=== PATIENT | female | born 1940 | race Caucasian/White ===

== ENCOUNTER 2017-06-06 17:44 | Inpatient (IN) | payer MEDICARE, MEDICAID ==
[~2017-06-06] VITALS: Ht 154.9 cm; Wt 60.0 kg
[2017-06-06 19:02] LABS: BASOPHIL % 0.4 % (0-2); PLATELET COUNT 242 x10^3mcL (130-400)
[2017-06-06 19:08] LABS: RED CELL DISTRIBUTION WIDTH 14.6 % (11.5-14.5)
[2017-06-06 19:25] LABS: CHLORIDE SERUM 105 mmol/L (98-107); CREATININE SERUM 1.2 mg/dL (0.6-1.0); GLUCOSE SERUM 109 mg/dL (74-106); POTASSIUM SERUM 5.2 mmol/L (3.5-5.1); SODIUM SERUM 137 mmol/L (136-145)
[2017-06-06 19:29] LABS: ALBUMIN 3.2 g/dL (3.4-5.0); ALKALINE PHOSPHATASE 338 U/L (46-116); ALT/SGPT 24 U/L (14-59); AST/SGOT 42 U/L (15-37); BILIRUBIN TOTAL 0.82 mg/dL (0.20-1.00); LIPASE 154 IU/L (73-393); TOTAL PROTEIN, SERUM 9.3 g/dL (6.4-8.2)
[2017-06-06] MEDS ORDERED: PREDNISONE20 MG PO (20:11)
[2017-06-06] MEDS ORDERED: OMEPRAZOLE40 M1 PO (20:11)
[2017-06-06] MEDS ORDERED: LASIX40 MG PO (20:11)
[2017-06-06] MEDS ORDERED: POTASSIUM CHLO10 MEQ PO (20:12)
[2017-06-06] MEDS ORDERED: COZAAR100 MG PO (20:13)
[2017-06-06] MEDS ORDERED: ALBUTEROL1.25 MG/3 (20:14)
[2017-06-06] MEDS ORDERED: ZITHROMAX Z-PA250 MG PO (20:14)
[2017-06-06 22:04] VITALS: BP 132/53
[2017-06-06 22:10] LABS: MAGNESIUM 2.7 mg/dL (1.8-2.4); PHOSPHOROUS 2.9 mg/dL (2.5-4.9)
[2017-06-06 22:11] LABS: CHOLESTEROL/HDL RATIO 3.5
[2017-06-06 22:17] LABS: T3 TOTAL 0.97 ng/mL
[2017-06-06 22:27] LABS: FREE T4 1.31 ng/dL (0.76-1.46); FREE THYROXINE INDEX 3.3 ug/dL (1.4-4.5); T4(THYROXINE) 8.8 ug/dL (4.7-13.3)
[2017-06-07] MEDS ORDERED: BREO ELLIPTA1 PO1 IH (01:49)
[2017-06-07 06:16] VITALS: BP 148/70
[2017-06-07 06:19] LABS: BASOPHIL % 0.3 % (0-2); PLATELET COUNT 227 x10^3mcL (130-400)
[2017-06-07 07:03] LABS: CALCIUM 8.5 mg/dL (8.5-10.1); CARBON DIOXIDE 21.8 mmol/L (21-32); CHLORIDE SERUM 105 mmol/L (98-107); CREATININE SERUM 1.3 mg/dL (0.6-1.0); GLUCOSE SERUM 163 mg/dL (74-106); POTASSIUM SERUM 4.6 mmol/L (3.5-5.1); SODIUM SERUM 137 mmol/L (136-145)
[2017-06-07 07:52] LABS: UA SPECIFIC GRAVITY 1.025 (1.005-1.035); microscopic required? YES
[2017-06-07 07:53] LABS: urine erythrocyte TRACE (NEGATIVE)
[2017-06-07 17:34] VITALS: BP 121/68
[2017-06-07 21:18] VITALS: BP 139/91
[2017-06-08 05:43] VITALS: BP 135/47
[2017-06-08 05:57] LABS: PLATELET COUNT 270 x10^3mcL (130-400); RED CELL DISTRIBUTION WIDTH 14.1 % (11.5-14.5)
[2017-06-08 05:59] LABS: BASOPHIL % 0 % (0-2)
[2017-06-08 06:19] LABS: CALCIUM 8.5 mg/dL (8.5-10.1); CARBON DIOXIDE 26.6 mmol/L (21-32); CHLORIDE SERUM 101 mmol/L (98-107); CREATININE SERUM 1.3 mg/dL (0.6-1.0); GLUCOSE SERUM 171 mg/dL (74-106); MAGNESIUM 1.8 mg/dL (1.8-2.4); POTASSIUM SERUM 3.5 mmol/L (3.5-5.1); SODIUM SERUM 134 mmol/L (136-145)
[2017-06-08 08:34] VITALS: BP 145/56
[2017-06-08 13:56] VITALS: BP 149/69
[2017-06-08 17:10] VITALS: BP 139/64
[2017-06-08 21:18] VITALS: BP 105/69
[2017-06-09 06:05] VITALS: BP 154/60
[2017-06-09 06:13] LABS: BASOPHIL % 0.1 % (0-2); PLATELET COUNT 285 x10^3mcL (130-400); RED CELL DISTRIBUTION WIDTH 13.8 % (11.5-14.5)
[2017-06-09 06:41] LABS: CALCIUM 8.5 mg/dL (8.5-10.1); CARBON DIOXIDE 27.7 mmol/L (21-32); CHLORIDE SERUM 97 mmol/L (98-107); CREATININE SERUM 1.3 mg/dL (0.6-1.0); GLUCOSE SERUM 149 mg/dL (74-106); MAGNESIUM 1.9 mg/dL (1.8-2.4); POTASSIUM SERUM 3.1 mmol/L (3.5-5.1); SODIUM SERUM 135 mmol/L (136-145)
[2017-06-09 08:50] VITALS: BP 141/59
[2017-06-09] MEDS ORDERED: LEVAQUIN750 MG PO (09:40)
[2017-06-09] MEDS ORDERED: MEDDP PO (09:41)
[2017-06-09] MEDS ORDERED: LAC PO (09:42)
[2017-06-09 12:15] VITALS: BP 143/56
[2017-06-09 12:58] VITALS: BP 141/59
== END 2017-06-09 14:55 | disposition home health service (06) | DRG 177 ==
LOC: ED 17:44 → DU 19:54
PROVIDERS: Emergency Medicine; ADMIT Family Medicine
DX: J69.0 Pneumonitis due to inhalation of food and vomit (principal); J96.01 Acute respiratory failure with hypoxia; I50.43 Acute on chronic combined systolic (congestive) and diastolic (congestive) heart failure; N17.0 Acute kidney failure with tubular necrosis; E44.0 Moderate protein-calorie malnutrition; I11.0 Hypertensive heart disease with heart failure; I48.0 Paroxysmal atrial fibrillation; K52.9 Noninfective gastroenteritis and colitis, unspecified; K74.60 Unspecified cirrhosis of liver; J43.9 Emphysema, unspecified; J45.909 Unspecified asthma, uncomplicated; D64.9 Anemia, unspecified; E83.41 Hypermagnesemia; E78.5 Hyperlipidemia, unspecified; E87.6 Hypokalemia; E11.9 Type 2 diabetes mellitus without complications; Z79.52 Long term (current) use of systemic steroids; Z68.25 Body mass index [BMI] 25.0-25.9, adult
CPT/HCPCS: 36600; 82962; 83880; 84439; 94150; J1956; J2543; J2920; J2930; J3490; J7030; J7613; J7644; Q0092